=== PATIENT | female | born 1955 | race Caucasian/White ===

== ENCOUNTER 2019-08-26 20:41 | Emergency (ER) | payer MEDICAID ==
[~2019-08-26] VITALS: Ht 160 cm; Wt 81.0 kg
[~2019-08-26 20:41] MED LIST: SYN0.075T PO
--- NOTE | 2019-08-26 21:09 | NUR ---
Morales Anderson grandson father Lana mom stacy mccullough.
[2019-08-26 21:23] VITALS: BP 154/95
--- NOTE | 2019-08-26 21:36 | NUR ---
[employer] officer at bedside, made contact with Pt. Pt does not want to discuss with [employer] or file report. Pt just wants to "get checked out."
[2019-08-26 23:03] LABS: BASOPHILS # (AUTO) 0.1 X10'3 (0-0.2); BASOPHILS % (AUTO) 1.1 % (0-1); EOSINOPHILS % (AUTO) 0.6 % (0-6); HEMATOCRIT 37.6 % (35.0-45.0); HEMOGLOBIN 12.9 g/dl (12.0-16.0); LYMPHOCYTES # (AUTO) 0.8 X10'3 (1.1-4.8); LYMPHOCYTES % (AUTO) 10.1 % (21-51); MEAN CORPUSCULAR HEMOGLOBIN 29.7 PG (27.0-31.0); MEAN CORPUSCULAR HGB CONC 34.4 g/dL (33.0-36.5); MEAN CORPUSCULAR VOLUME 86.4 FL (78-98); MEAN PLATELET VOLUME 8.8 FL (7.4-10.4); MONOCYTES # (AUTO) 0.3 X10'3 (0-0.9); MONOCYTES % (AUTO) 3.9 % (2-12); NEUTROPHILS % (AUTO) 84.3 % (42-75); PLATELET COUNT 171 X10'3 (140-440); RED BLOOD COUNT 4.35 X10'6 (4.20-5.60); RED CELL DISTRIBUTION WIDTH 13.2 % (11.5-14.5); WHITE BLOOD COUNT 8.4 X10'3 (4.5-11.0)
[2019-08-26 23:13] LABS: PARTIAL THROMBOPLASTIN TIME 27 SECONDS (22-32)
[2019-08-26] MEDS ORDERED: iohexol 350MG/ML 100ml bottle IV ONE (23:13)
[2019-08-26 23:18] LABS: ALANINE AMINOTRANSFERASE 27 U/L (12-78); ALBUMIN 3.7 G/DL (3.4-5.0); ALBUMIN/GLOBULIN RATIO 0.9 (1.1-1.5); ALKALINE PHOSPHATASE 115 IU/L (46-116); ANION GAP 8 (8-16); ASPARTATE AMINO TRANSFERASE 25 U/L (10-37); BILIRUBIN,TOTAL 0.9 MG/DL (0.1-1.0); BLOOD UREA NITROGEN 15 MG/DL (7-18); BUN/CREATININE RATIO 18.3 (6.6-38.0); CALCIUM 8.6 MG/DL (8.5-10.1); CHLORIDE 107 MMOL/L (99-107); CREATININE 0.82 MG/DL (0.40-0.90); GLUCOSE 108 MG/DL (70-104); POTASSIUM 3.3 MMOL/L (3.5-5.1); SODIUM 143 MMOL/L (135-145); TOTAL CARBON DIOXIDE 28.5 MMOL/L (24-32); TOTAL PROTEIN 7.6 G/DL (6.4-8.2); eGFR 70 ML/MIN
== END 2019-08-27 01:59 | disposition home or self-care (01) ==
LOC: ER 20:41
DX: S00.03XA Contusion of scalp, initial encounter (principal); I67.1 Cerebral aneurysm, nonruptured; M62.830 Muscle spasm of back; M54.2 Cervicalgia; F10.99 Alcohol use, unspecified with unspecified alcohol-induced disorder; E03.9 Hypothyroidism, unspecified; Z88.5 Allergy status to narcotic agent; Z79.899 Other long term (current) drug therapy; Y08.89XA Assault by other specified means, initial encounter; Y93.89 Activity, other specified; Y92.89 Other specified places as the place of occurrence of the external cause; Y99.8 Other external cause status; Y90.9 Presence of alcohol in blood, level not specified
CPT/HCPCS: 36415; 70450; 70496; 72125; 80053; 85025; 85610; 85730; 99284; Q9967

== ENCOUNTER 2024-12-20 | Emergency (ER) | payer MEDICAID ==
[~2024-12-20] VITALS: Ht 160 cm; Wt 84.3 kg
[2024-12-20 00:05] VITALS: TEMP 98.1
[2024-12-20] MEDS: HYDROcodone/acetaminophen 10/325mg tab PO STA (00:39)
[2024-12-20 00:41] VITALS: BP 122/74; PULSE 95; RESP 16; O2SAT 98
--- NOTE | 2024-12-20 00:44 | Physician Documentation ---
History of Present Illness ~ Chief Complaint: Mechanical Fall Stated Complaint: FALL W/KNEE PAIN Time Seen by MD: 00:39 OK to notify your PCP?: Yes Primary Medical Doctor: Kimberli HERNANDEZ, GANG [employer] WORKMAN; LEANNE/DELBERT CLEMENTE Source: patient, RN/, RN notes reviewed, old records Mode of Arrival: POV Exam Limitations: no limitations HPI 69 year old female complains of left anterior knee pain beginning around 1000 on 12/19/24 after she slipped on dog slobber, and fell directly onto the left knee on hardwood floor. She did have sudden onset of left knee pain and heard a "snap." She has been unable to bear weight on the left lower extremity, and has been unable to flex or extend the knee. Symptoms have not been improving throughout the day, so she elected to come to the ER. She denies any head injury or loss of consciousness during the fall. Tetanus within 5 Years?: No Medication Reconciliation Allergies: Coded Allergies: codeine (Verified Allergy, Unknown, vomiting, 12/20/24) Scheduled Levothyroxine Sodium* (Synthroid*), 75 MCG PO DAILY, (Reported) Past Medical History Past Medical History: *GI/HEPATOBILIARY*, Hypothyroidism Past Surgical History: no surgical history Patient History: (CAD) Coronary arteriosclerosis MOTHER, Name: Belem , Born [birth year]29, Age: 95, Not a twin, Race: WHITE, Onset:60 years & older (Cancer) Malignant carcinoid tumor MOTHER, Name: Belem , Born [birth year]/29, Age: 95, Not a twin, Race: WHITE, Onset:60 years & older (DM Type 2) Diabetes mellitus type 2 FATHER, Name: Roshan , Born 03/[birth year]/1926, Age: 98, Not a twin, Race: WHITE, Onset:60 years & older Alzheimer's disease FATHER, Name: Roshan , Born [birth year]1926, Age: 98, Not a twin, Race: WHITE, Onset:60 years & older FH: colon cancer MOTHER, Name: Belem , Born [birth year], Age: 95, Not a twin, Race: WHITE, Onset:60 years & older Alcohol Use: Occasionally Drug Use: none Lives with: Family Lives In: Home Occupation: employed Review of Systems All Other Systems at this time: Reviewed and Negative ROS As stated above in the HPI, otherwise all systems are reviewed and negative. Physical Exam Vital Signs: RN Vital Signs have been reviewed: Yes, Temperature: 98.1, Heart Rate: 104, Respiratory Rate: 16, BP: 147/79, Pulse Oximetry: 99, Weight: 84.300 Oxygen Flow Rate: 0 Pulse Oximetry Reflects: adequate oxygenation Physical Exam General: The patient is well developed, well nourished, nontoxic appearing and is in no acute distress. Skin: Spearman, warm and dry with no rashes. HEENT: Head was normocephalic and atraumatic. Chest: Clear to auscultation bilaterally without wheezes, rales or rhonchi. No accessory muscle use. No dullness to percussion. Heart: Rate regular and rhythmic. S1, S2. No murmurs. Palpation of the chest wall was normal. No rubs or thrills. Extremities: Left knee: Pain with flexion and extension of the knee. Tenderness over anterior knee/patella. Otherwise: No cyanosis, clubbing or edema. Pulses were equal and symmetric. Neurologic: Motor and sensation grossly intact. Cranial nerves II-XII grossly intact. A & O x4. Psychologic: Normal mood and affect. No agitation. Procedures Splinting Location: left knee Pre-Made Type: knee immobilizer Pre-Proc Neuro Vasc Exam: normal Post-Proc Neuro Vasc Exam: normal Splint Placed By: Nurse Tolerated Procedure Well?: yes, no complications Procedure Note Patient also given crutches and instructed on how to use them. Progress Results/Orders Results/Orders Vital Signs 12/20/24 12/20/24 12/20/24 12/20/24 00:05 00:39 00:41 00:41 Temp 98.1 Pulse 104 95 Resp 16 16 16 B/P (MAP) 147/79 122/74 (90) Pulse Ox 99 98 O2 Flow Rate 0 0 EKG/XRAY/CT/US/VASC/MRI Bone/Soft Tissue X-Ray (Ext.) : Additional Comment CLINICAL INDICATION: KNEE PAIN TECHNIQUE: 4 radiographic views of the left knee were obtained. Comparison: None FINDINGS/IMPRESSION: Nondisplaced fracture of the patella. Soft tissue swelling in the anterior left knee. Reviewed by me, Dr. Lang. CT : Interpreted By: radiologist CT: lower extremity (left) With Contrast?: No Impression CLINICAL INFORMATION: 69 years old, Female; left patellar fracture. TECHNIQUE: Axial CT images of the left knee were obtained without IV contrast. Coronal and sagittal reformatted images were obtained, reviewed, and stored. All CT scans at this medical facility are performed using dose modulation techniques as appropriate to a performed exam including the following: Automated exposure control was utilized; adjustment of the MA and/or KV according to patient size; and use of iterative reconstruction technique. CTDIvol = 16.9 mGy DLP = 541.99 mGy-cm COMPARISON: Radiographs dated 12/20/2024 12:16 a.m. FINDINGS: Acute, comminuted fracture of the patella with multiple lucent fracture planes of the anterior cortex and extending from the mid to inferior pole. There is moderate overlying soft tissue swelling. Small to moderate fluid in the suprapatellar recess. No other evidence of acute fracture. Moderate joint space narrowing in all 3 compartments, greatest in the medial compartment. P opliteal cyst measures up to 6.5 cm in proximal to distal dimension. IMPRESSION: 1. Nondisplaced, comminuted patellar fracture with overlying soft tissue swelling. 2. Small to moderate amount of fluid in the suprapatellar recess, may be due to hemarthrosis or joint effusion. 3. Popliteal cyst. Reviewed by Dr. Rickey macisa. Medical Decision Making Additional info obtained from: old records (admitted in 2014 for cholelithiasis) Departure Time of Disposition: :25 Disposition: 01 HOME / SELF CARE / HOMELESS Impression: Primary Impression: Patella fracture Qualified Codes: S82.002A - Unspecified fracture of left patella, initial encounter for closed fracture Condition: Stable Discharge Instructions: How to Use a Knee Immobilizer, [id number], Patellar Fracture, Adult Additional Instructions: Wear the knee immobilizer while awake and use crutches. DO NOT BEAR WEIGHT ON YOUR LEFT LEG, and do not bend your knee. If you bend your knee or bear weight you might cause your patella fracture to require surgery. Wear the knee immobilizer for the first few nights while sleeping. Then may wrap knee with karen bandages during sleep to prevent accidental bending of your knee. Follow up with Dr. Franklin, orthopedic surgeon. Follow up with your regular doctor in the next week. Return to the ER for other concerns. Take over the counter ibuprofen and tylenol as able/needed. Referrals: DEBORA FRANKLIN Jr., MD Education Educated: Patient Educated regarding: diagnosis, need for follow up, other Signature Scribe Signature: Scribed for Donnell Lang MD by Shellie Minaya . 12/20/24 01:08 DONNELL LANG MD December 20, 2024 00:44 SHELLIE MATTHEWS December 20, 2024 01:13
--- NOTE | 2024-12-20 08:01 | RADIOLOGY REPORT ---
CLINICAL INFORMATION: 69 years old, Female; left patellar fracture. TECHNIQUE: Axial CT images of the left knee were obtained without IV contrast. Coronal and sagittal r eformatted images were obtained, reviewed, and stored. All CT scans at this medical facility are per formed using dose modulation techniques as appropriate to a performed exam including the following: A utomated exposure control was utilized; adjustment of the MA and/or KV according to patient size; and use of iterative reconstruction technique. CTDIvol = 16.9 mGy DLP = 541.99 mGy-cm COMPARISON: Radiographs dated 12/20/2024 12:16 a.m. FINDINGS: Acute, comminuted fracture of the patella with multiple lucent fracture planes of the anter ior cortex and extending from the mid to inferior pole. There is moderate overlying soft tissue swell ing. Small to moderate fluid in the suprapatellar recess. No other evidence of acute fracture. Modera te joint space narrowing in all 3 compartments, greatest in the medial compartment. Popliteal cyst me asures up to 6.5 cm in proximal to distal dimension. IMPRESSION: 1. Nondisplaced, comminuted patellar fracture with overlying soft tissue swelling. 2. Small to moderate amount of fluid in the suprapatellar recess, may be due to hemarthrosis or joint effusion. 3. Popliteal cyst.
--- NOTE | 2024-12-20 09:01 | RADIOLOGY REPORT ---
CLINICAL INDICATION: KNEE PAIN TECHNIQUE: 4 radiographic views of the left knee were obtained. Comparison: None FINDINGS/IMPRESSION: Nondisplaced fracture of the patella. Soft tissue swelling in the anterior left knee.
== END 2024-12-20 02:16 | disposition home or self-care (01) ==
LOC: ER 00:01
DX: S82.092A Other fracture of left patella, initial encounter for closed fracture (principal); I25.10 Atherosclerotic heart disease of native coronary artery without angina pectoris; E03.9 Hypothyroidism, unspecified; Z88.5 Allergy status to narcotic agent; Z79.899 Other long term (current) drug therapy; W18.39XA Other fall on same level, initial encounter; Y93.89 Activity, other specified; Y92.89 Other specified places as the place of occurrence of the external cause; Y99.8 Other external cause status
CPT/HCPCS: 29505; 73564; 73700; 99284; A6449

== ENCOUNTER 2025-05-19 18:01 | Emergency (ER) | payer MEDICAID ==
[~2025-05-19] VITALS: Ht 160 cm; Wt 77.3 kg
--- NOTE | 2025-05-19 18:33 | Physician Documentation ---
History of Present Illness ~ Chief Complaint: Laceration Stated Complaint: LEG LAC Time Seen by MD: 19:37 Primary Medical Doctor: Yohan; MARY, PEGA DEVELOPER; LEANNE/BACILIO; [facility] This is a 69-year-old female who presents with a laceration to her right thigh caused by in utility knife that slipped while opening a tube of caulk Tetanus Within 5 Years: No Medication Reconciliation Allergies: Coded Allergies: codeine (Verified Allergy, Unknown, vomiting, 05/19/25) Scheduled Levothyroxine Sodium* (Synthroid*), 75 MCG PO DAILY, (Reported) Past Medical History Past Medical History: *GI/HEPATOBILIARY*, Hypothyroidism Past Surgical History: no surgical history Patient History: (CAD) Coronary arteriosclerosis MOTHER, Name: Belem , Born [birth year], Age: 95, Not a twin, Race: WHITE, Onset:60 years & older (Cancer) Malignant carcinoid tumor MOTHER, Name: Belem , Born [birth year], Age: 95, Not a twin, Race: WHITE, Onset:60 years & older (DM Type 2) Diabetes mellitus type 2 FATHER, Name: Roshan , Born 03/21/1925, Age: 99, Not a twin, Race: WHITE, Onset:60 years & older Alzheimer's disease FATHER, Name: Roshan , Born 03/21/1925, Age: 99, Not a twin, Race: WHITE, Onset:60 years & older FH: colon cancer MOTHER, Name: Belem , Born [birth year], Age: 95, Not a twin, Race: WHITE, Onset:60 years & older Alcohol Use: Occasionally Drug Use: none Lives with: Family Lives In: Home Occupation: employed Review of Systems ROS As stated above in the HPI, otherwise all systems are reviewed and negative. Physical Exam Vital Signs: Temperature: 97.6, Source: Temporal, Heart Rate: 88, Respiratory Rate: 18, BP: 133/83, Pulse Oximetry: 97, Weight: 77.270 Physical Exam VITALS: Reviewed and as above. GENERAL: Alert, nontoxic appearing, no apparent distress. RESPIRATORY: No increased work of breathing, no respiratory distress, speaking in full clear sentences SKIN: 1 cm shallow laceration to left lower thigh, bleeding controlled, well approximated without intervention. No evidence of retained foreign body. Progress Results/Orders Results/Orders Orders - TEZ ESTRELLA Dressing Orders (05/19/25 19:59) Wound Care Orders (05/19/25 19:59) Completed Orders - TEZ ESTRELLA Tetanus/Pertuss/Diph Acell/Pf (Boostrix (05/19/25 20:00) Vital Signs 05/19/25 05/19/25 18:09 21:07 Temp 97.6 98.6 Pulse 88 80 Resp 18 18 B/P (MAP) 133/83 130/80 Pulse Ox 97 99 Medical Decision Making Findings MSE performed in triage and patient returned to ED lobby by nursing staff to await available ED room, bleeding was controlled with dressing. This is a 69-year-old female who presented with a shallow laceration to her right thigh caused by a utility knife that slipped while opening a tube of caulk, on physical exam the wound appeared to be a 1 cm shallow uncomplicated laceration without evidence of foreign body, wound was well approximated without intervention and did not require repair, wound was cleaned and dressed by nursing staff and patient provided a tetanus booster. Patient provided home care instructions, follow up instructions, and return to care precautions which she verbalized understanding of. Differential Dx:Considerations: Include: Abrasion, Avulsion, Contusion, Laceration, Hematoma, Neurovascular injury, Retained foreign body Departure Time of Disposition: 19:58 Disposition: 01 HOME / SELF CARE / HOMELESS Impression: Primary Impression: Laceration Condition: Improved Discharge Instructions: Laceration Care, Adult, [id number] Additional Instructions: Keep the area clean dry and covered, change the dressing at least once a day or becomes soiled. Wash the area at least once a day. Please follow up with your primary care provider in the next few days. Please return to the emergency department for any new or worsening concerning symptoms. Referrals: NO PRIMARY CARE PROVIDER (PCP) Education Educated: Patient Educated regarding: diagnosis, treatment, prognosis, need for follow up Signature Scribe Signature: No scribe Attestation: The note accurately reflects work and decisions made by me.ELIZABETH Allen 05/20/25 09:40 TEZ ESTRELLA May 19, 2025 18:33
[2025-05-19] MEDS: TETanus/Pertussis (Acell)/Diphther VAC/PF (Tdap-Adult) 0.5ml syringe IMVAC ONE (21:01)
[2025-05-20 09:44] VITALS: BP 133/83; PULSE 88; RESP 18; TEMP 97.6; O2SAT 97
== END 2025-05-19 21:13 | disposition home or self-care (01) ==
LOC: ER 18:02
DX: S71.111A Laceration without foreign body, right thigh, initial encounter (principal); I25.10 Atherosclerotic heart disease of native coronary artery without angina pectoris; E03.9 Hypothyroidism, unspecified; Z88.5 Allergy status to narcotic agent; Z79.899 Other long term (current) drug therapy; Z72.89 Other problems related to lifestyle; W26.0XXA Contact with knife, initial encounter; Y93.89 Activity, other specified; Y92.89 Other specified places as the place of occurrence of the external cause; Y99.8 Other external cause status
CPT/HCPCS: 90471; 90715; 99283